=== PATIENT | female | born 1960 | race Caucasian/White ===

== ENCOUNTER 2024-05-07 02:47 | Day surgery (SDC) | payer BC, SELFPAY ==
[2024-04-22 10:36] VITALS: BMI 40.8
[2024-05-07] MEDS: LACTATED RINGERS 1,000 ML 150 ML IV CONT (09:26)
[2024-05-07 09:30] VITALS: BP 124/64; PULSE 72; RESP 17; TEMP 36.2; O2SAT 100; BMI 41.4
[2024-05-07 09:36] LABS: Glucose Point of Care 103 mg/dl (65-105)
--- NOTE | 2024-05-07 09:36 | WPDANESEPPF ---
Anes - Initial Pre Proc Eval Procedure: Operation Date: 05/07/24 10:30 Proposed Procedures p Screening Colonoscopy - Julio Sanchez DO Date/Time: 05/07/24 09:36 Surgeon: Julio Sanchez DO Pre Op Diagnosis: Screening for malignant neoplasm of colon Patient Data Age: 64 Gender: F Height: 1.6 m Weight: 106.2 kg Last Vital Signs Temp 97.1 F L 05/07/24 09:30 Pulse 72 05/07/24 09:30 Resp 17 05/07/24 09:30 BP 124/64 05/07/24 09:30 Pulse Ox 100 05/07/24 09:30 O2 Del Method Room Air 05/07/24 09:30 Allergies Allergy/AdvReac Type Severity Reaction Status Date / Time simvastatin Allergy Severe Muscle Verified 05/07/24 09:26 Spasms Sulfa (Sulfonamide Allergy Mild Itching Verified 05/07/24 09:26 Antibiotics) NSAIDS (Non-Steroidal Allergy Unknown Other Verified 05/07/24 09:26 Anti-Inflamma Home Medications Medication Instructions Recorded Confirmed Type calcium-vit D3-mag gly-zinc 2 cap PO DAILY 10/22/23 05/07/24 History cholecalciferol (vitamin D3) 25 25 mcg PO DAILY 10/22/23 05/07/24 History mcg (1,000 unit) capsule loratadine 10 mg tablet 10 mg PO DAILY 10/22/23 05/07/24 History multivitamin (Multiple Vitamins 1 tablet PO DAILY 10/22/23 05/07/24 History tablet) semaglutide 2 mg/dose (8 mg/3 mL) 2 mg (0.75 mL) subcut WEEKLY #9 mL 11/29/23 05/07/24 Rx subcutaneous pen injector (Ozempic) cyanocobalamin (vitamin B-12) 1,000 mcg IM MONTHLY 01/16/24 05/07/24 History 1,000 mcg/mL injection solution ezetimibe 10 mg tablet (Zetia) 10 mg PO DAILY #90 tabs 02/13/24 05/07/24 Rx gabapentin 600 mg tablet See Rx Instructions PO .COMPLEX 02/13/24 05/07/24 Rx #360 tabs hydrochlorothiazide 12.5 mg capsule 12.5 mg PO QAM #90 caps 03/17/24 05/07/24 Rx ropinirole 0.25 mg tablet 0.25 mg PO QHS #90 tabs 03/19/24 05/07/24 Rx paroxetine HCl 10 mg tablet 10 mg PO QHS #90 tabs 04/16/24 05/07/24 Rx ascorbic acid (vitamin C) 500 mg 500 mg PO DAILY 04/22/24 05/07/24 History tablet ferrous sulfate 325 mg (65 mg 325 mg PO 2XW 04/22/24 05/07/24 History iron) tablet Laboratory Tests 05/07/24 09:34 POC Capillary Glucose 103 mg/dl (65-105) Patient hx anesthesia problems: none Family hx anesthesia problems: none Results Review: All pre-operative results and documents have been reviewed as part of the pre-operative evaluation. [facility] Past Medical History Medical History Allergies Depression Diabetes Diabetic neuropathy Edema Hyperlipidemia Restless leg syndrome Surgical History Surgical History Hx laparoscopic cholecystectomy (~2016) Personal history of gastric bypass (~02/2018) S/p total knee replacement, bilateral left knee 2007, right knee 2019 Family History Family History Mother Alcoholism Heart disease Sibling Alcoholism Father Diabetes mellitus Heart disease Social History Social History Smoking status: Never smoker Alcohol intake: current Substance use: never Substance use type: does not use Lack of Transportation: No Lack of Food: Never True Current Housing: I Have Housing Concerned About Future Housing: No Difficulty Paying Gas/Electric Bills: No Difficulty Paying for Meds: No Currently Unemployed: No Education: Master's Degree or Higher Difficulty w/ Childcare or Family Care: No Living arrangements: with family Spiritual care concerns: No Anes - Eval Final PreProcedure Day of Procedure 05/07/24 09:36 Patient weight: morbidly obese Heart: regular rate and rhythm Lungs: clear to auscultation Airway: Mallampati scale class II Neurological: alert and oriented Last oral intake: >/= 8 hours ASA classification: III Emergent: no Anesthetic plan: proceed Anesthesia type and m
--- NOTE | 2024-05-07 10:09 | PM.IMHP ---
H&P: HPI History of Present Illness Date/Time: 05/07/24 10:09 Chief Complaint: screening for colorectal cancer Narrative: this is a 64-year-old woman who presents for colonoscopy. Her last colonoscopy was about 25 years ago. She denies any hematochezia or melena. She denies any family history of colon cancer. Review of Systems Review of Systems: All systems reviewed & are unremarkable except as noted in HPI and below Constitutional: Constitutional: Denies chills, Denies fever(s), Denies headache(s) and Denies weight loss Eyes: Eyes: Denies change in vision ENT: Denies dizziness, Denies headache(s), Denies neck mass and Denies throat swelling Cardiovascular: Cardiovascular: Denies chest pain, Denies lightheadedness and Denies dyspnea Respiratory: Respiratory: Denies cough, Denies dyspnea and Denies wheezing Gastrointestinal: Gastrointestinal: Denies abdominal pain, Denies change in bowel habits, Denies nausea and Denies vomiting Genitourinary: Genitourinary: Denies hematuria and Denies dysuria Musculoskeletal: Musculoskeletal: Reports as per HPI Integumentary/Breasts: Skin/Breast: Reports as per HPI Neurologic: Denies dizziness and Denies headache(s) Allergic/Immunologic: Allergic/Immunologic: Denies throat swelling and Denies wheezing PMF Past Medical History Medical History Allergies Depression Diabetes Diabetic neuropathy Edema Hyperlipidemia Restless leg syndrome Surgical History Surgical History Hx laparoscopic cholecystectomy (~2016) Personal history of gastric bypass (~02/2018) S/p total knee replacement, bilateral left knee 2007, right knee 2019 Family History Family History Mother Alcoholism Heart disease Sibling Alcoholism Father Diabetes mellitus Heart disease Social History Social History Smoking status: Never smoker Alcohol intake: current Substance use: never Substance use type: does not use Lack of Transportation: No Lack of Food: Never True Current Housing: I Have Housing Concerned About Future Housing: No Difficulty Paying Gas/Electric Bills: No Difficulty Paying for Meds: No Currently Unemployed: No Education: Master's Degree or Higher Difficulty w/ Childcare or Family Care: No Living arrangements: with family Spiritual care concerns: No Meds Home Medications and Allergies Home Medications Medication Instructions Recorded Confirmed Type calcium-vit D3-mag gly-zinc 2 cap PO DAILY 10/22/23 05/07/24 History cholecalciferol (vitamin D3) 25 25 mcg PO DAILY 10/22/23 05/07/24 History mcg (1,000 unit) capsule loratadine 10 mg tablet 10 mg PO DAILY 10/22/23 05/07/24 History multivitamin (Multiple Vitamins 1 tablet PO DAILY 10/22/23 05/07/24 History tablet) semaglutide 2 mg/dose (8 mg/3 mL) 2 mg (0.75 mL) subcut WEEKLY #9 mL 11/29/23 05/07/24 Rx subcutaneous pen injector ([employer]) cyanocobalamin (vitamin B-12) 1,000 mcg IM MONTHLY 01/16/24 05/07/24 History 1,000 mcg/mL injection solution ezetimibe 10 mg tablet (Zetia) 10 mg PO DAILY #90 tabs 02/13/24 05/07/24 Rx gabapentin 600 mg tablet See Rx Instructions PO .COMPLEX 02/13/24 05/07/24 Rx #360 tabs hydrochlorothiazide 12.5 mg capsule 12.5 mg PO QAM #90 caps 03/17/24 05/07/24 Rx ropinirole 0.25 mg tablet 0.25 mg PO QHS #90 tabs 03/19/24 05/07/24 Rx paroxetine HCl 10 mg tablet 10 mg PO QHS #90 tabs 04/16/24 05/07/24 Rx ascorbic acid (vitamin C) 500 mg 500 mg PO DAILY 04/22/24 05/07/24 History tablet ferrous sulfate 325 mg (65 mg 325 mg PO 2XW 04/22/24 05/07/24 History iron) tablet Allergies Allergy/AdvReac Type Severity Reaction Status Date / Time simvastatin Allergy Severe Muscle Verified 05/07/24 09:26 Spasms Sulfa (Sulfonamide Allergy Mild
[2024-05-07 10:53] VITALS: BP 97/54; PULSE 79; RESP 21; O2SAT 99
[2024-05-07 11:03] VITALS: BP 104/62; PULSE 69; RESP 23; O2SAT 100
[2024-05-07 11:13] VITALS: BP 110/63; PULSE 67; RESP 16; O2SAT 100
== END 2024-05-07 11:30 | disposition home or self-care (01) ==
PROVIDERS: PCP Internal Medicine; Visit Provider Surgery
PROC: 0DJD8ZZ Inspection of Lower Intestinal Tract, Via Natural or Artificial Opening Endoscopic (ICD-10-PCS; CPT 45378; principal; 2024-05-07 10:30)
DX: Z12.11 Encounter for screening for malignant neoplasm of colon (principal); K57.30 Diverticulosis of large intestine without perforation or abscess without bleeding; E78.5 Hyperlipidemia, unspecified; F32.A Depression, unspecified; E11.40 Type 2 diabetes mellitus with diabetic neuropathy, unspecified; G25.81 Restless legs syndrome; E66.01 Morbid (severe) obesity due to excess calories; Z68.41 Body mass index [BMI] 40.0-44.9, adult; Z79.85 Long-term (current) use of injectable non-insulin antidiabetic drugs; Z98.890 Other specified postprocedural states; Z90.49 Acquired absence of other specified parts of digestive tract; Z98.84 Bariatric surgery status; Z82.49 Family history of ischemic heart disease and other diseases of the circulatory system
CPT/HCPCS: 45378; 82948; J2704; J7120

== ENCOUNTER 2024-10-29 15:05 | Emergency (ER) | payer BC, SELFPAY ==
[2024-10-29 15:15] VITALS: BP 140/79; PULSE 94; RESP 16; TEMP 36.4; O2SAT 100
--- NOTE | 2024-10-29 15:19 | ED.URI ---
HPI - URI/Sore Throat General Chief Complaint: Upper Respiratory Infection Stated Complaint: Sore Throat/Ear Pain Time Seen by Provider: 10/29/24 15:19 Source: patient Mode of arrival: ambulatory Limitations: no limitations History of Present Illness HPI Narrative: 64-year-old female presents with complaint of irritated throat, bilateral ear pain, headache, fatigue, aches, coughing for 1 day. Afebrile. Patient works at school. Has had strep and flu exposure. Does not want flu testing. Concerned she may have ear infection. Takes Claritin daily. All systems reviewed and negative except as noted above. Related Data Home Medications ?Medication ?Instructions ?Recorded ?Confirmed ?Last Taken ?Type calcium-vit D3-mag gly-zinc 2 cap PO DAILY 10/22/23 08/18/24 05/06/24 History cholecalciferol (vitamin D3) 25 25 mcg PO DAILY 10/22/23 08/18/24 05/06/24 History mcg (1,000 unit) capsule loratadine 10 mg tablet 10 mg PO DAILY 10/22/23 08/18/24 05/06/24 History multivitamin (Multiple Vitamins 1 tablet PO DAILY 10/22/23 08/18/24 05/06/24 History tablet) cyanocobalamin (vitamin B-12) 1,000 mcg IM MONTHLY 01/16/24 08/18/24 05/06/24 History 1,000 mcg/mL injection solution ascorbic acid (vitamin C) 500 mg 500 mg PO DAILY 04/22/24 08/18/24 05/06/24 History tablet ferrous sulfate 325 mg (65 mg 325 mg PO .ONCE weekly 08/18/24 08/18/24 Unknown History iron) tablet Allergies Allergy/AdvReac Type Severity Reaction Status Date / Time simvastatin Allergy Severe Muscle Verified 10/29/24 15:20 Spasms Sulfa (Sulfonamide Allergy Mild Itching Verified 10/29/24 15:20 Antibiotics) NSAIDS (Non-Steroidal Allergy Unknown Other Verified 10/29/24 15:20 Anti-Inflamma Review of Systems Review of Systems: CONSTITUTIONAL: Denies fever, chills, or sweats. Reports fatigue. EYES: Denies visual changes, redness, or discharge. ENT: Reports rhinorrhea, congestion, sore throat, bilateral otalgia. CARDIOVASCULAR: Denies chest pain, palpitations, or edema. RESPIRATORY: Reports cough. Denies dyspnea. GASTROINTESTINAL: Denies abdominal pain, nausea, vomiting, or diarrhea. GENITOURINARY: Denies dysuria or hematuria. SKIN: Denies rash or itching. MUSCULOSKELETAL: Denies back pain, joint pain. Reports myalgia. NEUROLOGIC: Denies headache, numbness, or weakness. PSYCHIATRIC: Denies anxiety or depression. All other systems reviewed are negative, except as documented in HPI. [facility] Past Medical History Medical History Hyperlipidemia Diabetic neuropathy Edema Restless leg syndrome Depression Diabetes Allergies Surgical History Surgical History S/p total knee replacement, bilateral left knee 2007, right knee 2019 Hx laparoscopic cholecystectomy (~2016) Personal history of gastric bypass (~02/2018) Family History Family History Mother Alcoholism Heart disease Sibling Alcoholism Father Diabetes mellitus Heart disease Social History Social History Smoking status: Never smoker Alcohol intake: current Substance use: never Substance use type: does not use Lack of Transportation: No Lack of Food: Never True Current Housing: I Have Housing Concerned About Future Housing: No Difficulty Paying Gas/Electric Bills: No Difficulty Paying for Meds: No Currently Unemployed: No Education: Master's Degree or Higher Difficulty w/ Childcare or Family Care: No Living arrangements: with family Spiritual care concerns: No Comments At time of signature, agree with nursing past medical, surgical, social and family history. There is no relevant family history pertinent to the presenting complaint. Exam Narrative: GENERAL: This is a well-nourished, well-developed patient, in no apparent distress. HEAD: normocephalic, atraumatic. EYES: PERRL. Sclera clear/white. Vision is grossly intact. EARS: External ears normal, auditory canals clear and without drainage, clear fluid bilateral TMs without erythema, bulging or perforation. Hearing grossly intact. NOSE: External nose normal with clear nasal drainage THROAT: Mucous membranes moist, no erythema. Clear postnasal drainage noted. NECK: Neck supple, non-tender without lymphadenopathy, masses or thyromegaly. CARDIOVASCULAR: Regular rate and rhythm without murmurs, gallops, or rubs. RESPIRATORY: Clear to auscultation. Breath sounds equal bilaterally. No wheezes, rales, or rhonchi. SKIN: warm, Dry, intact with no suspicious lesions or rash, good texture and turgor. NEURO: awake, alert, and oriented to person, place and time. There were no obvious focal neurologic abnormalities. EXTREMITIES: No joint tenderness, effusion, or edema noted. Course Course Level of Care: Express Care Visit Vital Signs Vital signs: Vital Signs Temperature 36.4 C 10/29/24 15:15 Pulse Rate 94 10/29/24 15:15 Respiratory Rate 16 10/29/24 15:15 Blood Pressure 140/79 10/29/24 15:15 Pulse Oximetry 100 10/29/24 15:15 Temperature 36.4 C 10/29/24 15:15 Pulse Rate 94 10/29/24 15:15 Respiratory Rate 16 10/29/24 15:15 Blood Pressure 140/79 10/29/24 15:15 Pulse Oximetry 100 10/29/24 15:15 Reviewed MDM - URI/Sore Throat MDM Narrative Medical decision making narrative: Negative rapid strep. Strep culture ordered. Patient is well-appearing. Recommend [id number] medications to treat viral symptoms. Please be advised this is a medical document. It is intended for [id number] communication. It is written in medical language and may contain unfamiliar abbreviations or verbiage. Medical documents are intended to carry relevant information, facts as evident, and the clinical opinion of the practitioner at the time of the encounter. This report may have been done utilizing a voice recognition system. Attempts have been made to correct errors. However, there may be uncorrected grammatical, spelling, and recognition errors present. The file time of this note does not necessarily represent the time of service. Differential Diagnosis Differential diagnosis: Likely upper respiratory infection, sinusitis, viral infection, influenza and pharyngitis Lab Data Labs: Lab Results 10/29/24 Range/Units 15:24 POC Grp A Strep Screen Negative (Negative) Discharge Plan Discharge Clinical Impression: Viral upper respiratory tract infection with cough Patient Disposition: Home, Self-Care Condition: Stable Instructions: Upper Respiratory Infection (ED) Additional Instructions: Your strep test was negative today. Your symptoms are viral and may last 10-14 days. Taking [id number] medication to treat her symptoms such as DayQuil NyQuil cold and Sinus. Drink at least 64 oz of water a day. Place cool mist humidifier in bedroom where you sleep. Follow-up with your doctor if symptoms are not improving. Patient Language: Guine[place] Prescriptions: No Action loratadine 10 mg tablet 10 mg PO DAILY multivitamin [Multiple Vitamins] Tablet 1 tablet PO DAILY calcium-vit D3-mag gly-zinc 2 cap PO DAILY cholecalciferol (vitamin D3) 25 mcg (1,000 unit) capsule 25 mcg PO DAILY cyanocobalamin (vitamin B-12) 1,000 mcg/mL solution 1,000 mcg IM MONTHLY ferrous sulfate 325 mg (65 mg iron) tablet 325 mg PO .ONCE weekly ascorbic acid (vitamin C) 500 mg Tablet 500 mg PO DAILY ezetimibe [Zetia] 10 mg tablet 10 mg PO DAILY Qty: 90 1RF gabapentin 600 mg tablet See Rx Instructions PO .COMPLEX Qty: 360 1RF Rx Instructions: 1 tablet qam, 1 tablet midday, and 2 tablets qhs. hydrochlorothiazide 12.5 mg capsule 12.5 mg PO QAM Qty: 90 1RF Ozempic 2 mg/dose (8 mg/3 mL) pen injector 2 mg subcut WEEKLY Qty: 9 1RF ropinirole 0.25 mg tablet See Rx Instructions .ROUTE .COMPLEX Qty: 90 0RF Dose Instruction: TAKE 1 TABLET BY MOUTH EVERY DAY AT BEDTIME Rx Instructions: TAKE 1 TABLET BY MOUTH EVERY DAY AT BEDTIME paroxetine HCl 10 mg tablet See Rx Instructions .ROUTE .COMPLEX Qty: 90 0RF Dose Instruction: TAKE 1 TABLET BY MOUTH EVERY DAY AT BEDTIME Rx Instructions: TAKE 1 TABLET BY MOUTH EVERY DAY AT BEDTIME Follow-up/Referrals: Sera Ivy, [employer] [Primary Care Provider] - Time of Disposition: 15:28
[2024-10-29 15:26] LABS: EDSTREPNEGPOS1 Negative (Negative)
== END 2024-10-29 15:31 | disposition home or self-care (01) ==
PROVIDERS: Emergency Provider Nurse Practitioner Family; PCP Nurse Practitioner
DX: J06.9 Acute upper respiratory infection, unspecified (principal); R05.9 Cough, unspecified; E11.40 Type 2 diabetes mellitus with diabetic neuropathy, unspecified; Z79.85 Long-term (current) use of injectable non-insulin antidiabetic drugs; E78.5 Hyperlipidemia, unspecified; G25.81 Restless legs syndrome; Z96.653 Presence of artificial knee joint, bilateral; Z98.84 Bariatric surgery status; F32.A Depression, unspecified
CPT/HCPCS: 87081; 87880; 99213; G0463

== ENCOUNTER 2025-08-10 11:27 | Outpatient (CLI) | payer BC, SELFPAY ==
--- NOTE | ~2025-08-10 | XR_ITS ---
EXAMINATION: XR chest 2V 08/10/2025 11:52 INDICATION: Cough and fever PROCEDURE: 2 view chest COMPARISON: No prior studies for comparison. FINDINGS: The lungs are clear. The cardiomediastinal silhouette is within normal limits. There are no pleural effusions. There is no pneumothorax suspected. IMPRESSION: 1: NO ACUTE CARDIOPULMONARY DISEASE. Reviewed, dictated and finalized at location I. [facility]
== END 2025-08-10 11:28 | disposition home or self-care (01) ==
LOC: GOSHIMG 11:32
PROVIDERS: PCP Clinical Nurse Specialist; Visit Provider Clinical Nurse Specialist
DX: R05.9 Cough, unspecified (principal); R06.89 Other abnormalities of breathing; R53.83 Other fatigue
CPT/HCPCS: 71046